=== PATIENT | male | born 1965 | race Caucasian/White ===

== ENCOUNTER 2021-11-06 11:36 | Emergency (ER) | payer MEDICAID ==
[~2021-11-06] VITALS: Ht 177.8 cm; Wt 73.2 kg
[2021-11-06 11:44] VITALS: BP 125/70
[2021-11-06] MEDS ORDERED: BACI28OI8 TOP (12:24)
[2021-11-06] MEDS ORDERED: SULF1TAB49 PO (12:24)
== END 2021-11-06 13:04 | disposition home or self-care (01) ==
LOC: ER 11:36
DX: R23.4 Changes in skin texture (principal); Z88.1 Allergy status to other antibiotic agents; Z79.899 Other long term (current) drug therapy
CPT/HCPCS: 99281